=== PATIENT | female | born 1955 | race Caucasian/White ===

== ENCOUNTER 2020-04-24 11:05 | Outpatient (CLI) | payer MEDICARE, SELFPAY ==
[2020-04-24 11:42] LABS: Basophils Percent Auto 0.4 % (0.2-1.2); Eosinophils Absolute Auto 0.1 K/mm3 (0-0.3); Eosinophils Percent Auto 2.2 % (0-4.4); Hematocrit 43.2 % (37.0-47.0); Hemoglobin 14.4 g/dL (12.0-15.0); Immature Granulocyte Absolute 0.01 K/mm3 (0.00-0.031); Immature Granulocyte Percent A 0.2 % (0-0.5); Lymphocytes Absolute Auto 2.06 K/mm3 (0.9-3.2); Lymphocytes Percent Auto 41.4 % (18.3-44.2); Mean Corpuscular HGB Conc 33.3 g/dl (32-36); Mean Corpuscular Hemoglobin 29.7 pg (26-34); Mean Corpuscular Volume 89.1 fl (80-100); Mean Platelet Volume 9.9 fl (7.4-10.4); Monocytes Absolute Auto 0.4 K/mm3 (0.1-0.6); Monocytes Percent Auto 7.2 % (2.6-8.5); Neutrophils Absolute Auto 2.4 K/mm3 (1.3-6.7); Neutrophils Percent Auto 48.6 % (45.5-73.1); Platelet Count Result 220 k/mm3 (150-375); Red Blood Count 4.85 M/mm3 (4.2-5.4); Red Cell Distribution Width 11.9 % (11.5-14.5)
[2020-04-24 11:54] LABS: Alanine Aminotransferase 30 U/L (4-35); Albumin Level 4.8 g/dL (3.5-5.1); Alkaline Phosphatase 50 U/L (38-126); Anion Gap 8 mmol/L (8-16); Aspartate Amino Transferase 32 U/L (14-36); Bilirubin,Total 0.4 mg/dL (0.2-1.3); Blood Urea Nitrogen 15 mg/dL (7-17); Calcium 9.5 mg/dL (8.4-10.2); Carbon Dioxide 29 mmol/L (22-30); Chloride 101 mmol/L (98-107); Cholesterol 193 mg/dL (0-200); Estimated Glomerular Filt Rate > 60; Glucose 105 mg/dL (65-105); HDL Direct 54 mg/dL; Potassium 4.2 mmol/L (3.4-5.0); Sodium 138 mmol/L (137-145); Triglycerides 178 mg/dL (<150)
[2020-04-24 12:05] LABS: LDL Cholesterol Direct 92 mg/dL
== END 2020-04-24 11:06 | disposition home or self-care (01) ==
LOC: ANHLAB 11:09
PROVIDERS: PCP Internal Medicine; Visit Provider Nurse Practitioner
DX: E55.9 Vitamin D deficiency, unspecified (principal); E78.5 Hyperlipidemia, unspecified; Z13.228 Encounter for screening for other metabolic disorders
CPT/HCPCS: 36415; 80053; 80061; 82306; 85025

== ENCOUNTER 2020-06-11 15:31 | Outpatient (CLI) | payer MEDICARE, SELFPAY ==
[2020-06-11 18:09] LABS: Vitamin D 25 Hydroxy 29.6 ng/mL
== END 2020-06-11 15:32 | disposition home or self-care (01) ==
LOC: ANHLAB 15:31
PROVIDERS: PCP Internal Medicine; Visit Provider Obstetrics & Gynecology
DX: M85.89 Other specified disorders of bone density and structure, multiple sites (principal)
CPT/HCPCS: 36415; 82306

== ENCOUNTER 2020-09-24 10:58 | Outpatient (CLI) | payer MEDICARE, SELFPAY ==
--- NOTE | ~2020-09-24 | XR_ITS ---
XR ankle RT 2V DATE: 09/24/2020 11:22 INDICATION: Right ankle and foot pain TECHNIQUE: 2 views COMPARISON: None FINDINGS: Mild plantar calcaneal enthesopathy. No fracture or dislocation of the ankle or disruption of the ankle mortise. No periosteal reaction or bone destruction. IMPRESSION: Mild plantar calcaneal enthesopathy Reviewed, dictated and finalized at location A.
== END 2020-09-24 10:59 | disposition home or self-care (01) ==
PROVIDERS: PCP Internal Medicine; Visit Provider Nurse Practitioner
DX: M77.31 Calcaneal spur, right foot (principal)
CPT/HCPCS: 73600

== ENCOUNTER 2020-11-06 08:01 | Outpatient (CLI) | payer MEDICARE, SELFPAY ==
--- NOTE | ~2020-11-06 | DEXA_ITS ---
Bone Density Report Name: Brook Lucas Age: 65 Sex: Female Ethnicity: White Date of : 1955 Indication: osteopenia; monitoring treatment; prior fracture; postmenopausal Referring Provider: LUIS DREW Study: Bone densitometry was performed. Exam Date: November 06, 2020 Accession number: [id number] Bone Density: Region BMD T-score Z-score Classification AP Spine (L1-L4) 0.896 -1.4 0.5 Osteopenia Femoral Neck (Left) 0.744 -0.9 0.7 Normal Total Hip (Left) 0.935 -0.1 1.3 Normal Total Hip Bilateral Avg 0.950 0.1 1.4 Normal Femoral Neck (Right) 0.833 -0.1 1.5 Normal Total Hip (Right) 0.964 0.2 1.5 Normal World Health Organization criteria for BMD impression classify patients as: Normal (T-score at or above -1.0), Osteopenia (T-score between -1.0 and -2.5), or Osteoporosis (T-score at or below -2.5). 10-year Fracture Risk: FRAX not reported because: Treated for osteoporosis Previous Exams: Region Exam Age BMD T-score BMD Change BMD Change Date g/cm2 vs Baseline vs Previous AP Spine(L1-L4) 11/06/2020 65 0.896 -1.4 -0.051(-5.4%)# 0.010(1.1%) 11/05/2017 62 0.886 -1.5 -0.061(-6.5%)# 0.037(4.4%)# 09/27/2008 53 0.849 -1.8 -0.098(-10.4%) -0.098(-10.4%) 10/31/2003 48 0.947 -0.9 Total Hip(Left) 11/06/2020 65 0.935 -0.1 0.012(1.3%)# 0.021(2.3%) 11/05/2017 62 0.914 -0.2 -0.009(-0.9%)# -0.024(-2.5%)# 09/27/2008 53 0.938 0.0 0.015(1.6%) 0.015(1.6%) 10/31/2003 48 0.923 -0.2 Total Hip(Right) 11/06/2020 65 0.964 0.2 0.030(3.2%)# -0.009(-0.9%) 11/05/2017 62 0.973 0.3 0.039(4.2%)# 0.048(5.2%)# 09/27/2008 53 0.925 -0.1 -0.009(-0.9%) -0.009(-0.9%) 10/31/2003 48 0.934 -0.1 *Denotes significance at 95% confidence level, LSC for AP Spine = 0.022 g/cm2, LSC for Total Hip = 0.027 g/cm2 Clinical Information Provided by Patient: Has had a low trauma fracture Is being treated for osteoporosis Has used the following medications: Fosamax (i.e. alendronate) Patient maximum height was 69 Menopause Age: 41 No regular weight bearing exercise Does not regularly consume dairy products Drinks caffeinated beverages Onset of menses at age 12 Number of children 1 Impression: The patient has low bone mass, based on the Total Spine T-score. The patient has risk factors, including: previous fracture. No significant bone loss was observed. Discussion: PATIENT UNDER TREATMENT WITH NO SI
--- NOTE | ~2020-11-06 | MM_ITS ---
EXAMINATION: MM screening bronson BI w billy HISTORY: Screening mammogram, family history of breast cancer in her mother. TECHNIQUE: Craniocaudal and mediolateral oblique 3-D tomosynthesis images were obtained and synthetic 2-D images were generated. CAD analysis was submitted and interpreted. COMPARISON: 11/12/2017, 11/05/2017, 09/09/1715, 09/09/2015 BREAST PARENCHYMAL COMPOSITION: There are scattered areas of fibroglandular density. FINDINGS: RIGHT BREAST: There is a possible mass middle third of the upper breast best appreciated 5 cm from th e nipple on the mediolateral oblique view. LEFT BREAST: There is no evidence of suspicious mass, calcification, or architectural distortion to s uggest malignancy. There has been no significant interval change. IMPRESSION: 1. Possible right breast mass. 2. Additional mammographic views and possible breast ultrasound are recommended. BI-RADS Category 0: Incomplete: Needs additional imaging evaluation. Reviewed, dictated and finalized at location A. IMPRESSION: 1. Possible right breast mass. 2. Additional mammographic views and possible breast ultrasound are recommended . BI-RADS Category 0: Incomplete: Needs additional imaging evaluation.
== END 2020-11-06 08:02 | disposition home or self-care (01) ==
LOC: ANHIMG 08:03
PROVIDERS: PCP Internal Medicine; Visit Provider Obstetrics & Gynecology
DX: Z12.31 Encounter for screening mammogram for malignant neoplasm of breast (principal); Z78.0 Asymptomatic menopausal state; M85.88 Other specified disorders of bone density and structure, other site; R92.8 Other abnormal and inconclusive findings on diagnostic imaging of breast
CPT/HCPCS: 77063; 77067; 77080

== ENCOUNTER 2021-02-06 14:23 | Outpatient (CLI) | payer MEDICARE, SELFPAY ==
--- NOTE | ~2021-02-06 | MMUS_ITS ---
EXAMINATION: MM diagnostic bronson RT w billy, US breast RT limited HISTORY: Right breast mass on screening TECHNIQUE: Additional 3-D tomosynthesis images of the right breast were performed and synthetic 2-D i mages were generated. CAD analysis was submitted and interpreted. High resolution limited right breas t ultrasound was performed. COMPARISON: 11/06/2020, 11/12/2017, 11/05/2017 BREAST PARENCHYMAL COMPOSITION: There are scattered areas of fibroglandular density. FINDINGS: MAMMOGRAPHIC FINDINGS: There is a 7 mm irregular high density mass with spiculated margins at the 12:00 location in the midd le third of the right breast 6 cm from the nipple with surrounding architectural distortion. ULTRASOUND: There is a 7 mm x 5 mm irregular mass with indistinct and angular margins at the 12:00 location 4 cm from the nipple. The mass demonstrates posterior acoustic shadowing and internal vascularity. IMPRESSION: 1. Suspicious right breast mass. 2. Ultrasound-guided biopsy is recommended. BI-RADS category 5, highly suggestive of malignancy. Reviewed, dictated and finalized at location A. RATORY DIRECTOR IMPRESSION: 1. Suspicious right breast mass. 2. Ultrasound-guided biopsy is recommended. BI-RADS category 5, highly suggestive of malignancy.
== END 2021-02-06 14:24 | disposition home or self-care (01) ==
PROVIDERS: PCP Internal Medicine; Visit Provider Obstetrics & Gynecology
DX: N63.10 Unspecified lump in the right breast, unspecified quadrant (principal); R92.8 Other abnormal and inconclusive findings on diagnostic imaging of breast
CPT/HCPCS: 76642; 77061; 77065; G0279

== ENCOUNTER 2021-12-26 09:34 | Outpatient (CLI) | payer MEDICARE, SELFPAY ==
[2021-12-26 19:45] LABS: Basophils Percent Auto 0.5 % (0.2-1.2); Eosinophils Absolute Auto 0.1 K/mm3 (0-0.3); Eosinophils Percent Auto 1.7 % (0-4.4); Hematocrit 42.5 % (37.0-47.0); Immature Granulocyte Absolute 0.02 K/mm3 (0.00-0.031); Immature Granulocyte Percent A 0.3 % (0-0.5); Lymphocytes Absolute Auto 1.63 K/mm3 (0.9-3.2); Lymphocytes Percent Auto 27.3 % (18.3-44.2); Mean Corpuscular HGB Conc 32.9 g/dl (32-36); Mean Corpuscular Hemoglobin 30.8 pg (26-34); Mean Corpuscular Volume 93.6 fl (80-100); Mean Platelet Volume 10.5 fl (7.4-10.4); Monocytes Absolute Auto 0.5 K/mm3 (0.1-0.6); Monocytes Percent Auto 7.9 % (2.6-8.5); Neutrophils Absolute Auto 3.7 K/mm3 (1.3-6.7); Neutrophils Percent Auto 62.3 % (45.5-73.1); Platelet Count Result 171 k/mm3 (150-375); Red Blood Count 4.54 M/mm3 (4.2-5.4); Red Cell Distribution Width 11.9 % (11.5-14.5)
[2021-12-26 19:52] LABS: Alanine Aminotransferase 22 U/L (6-35); Albumin Level 4.4 g/dL (3.5-5.1); Alkaline Phosphatase 49 U/L (38-126); Anion Gap 11 mmol/L (8-16); Aspartate Amino Transferase 30 U/L (14-36); Bilirubin,Total 0.6 mg/dL (0.2-1.3); Blood Urea Nitrogen 19 mg/dL (7-17); Carbon Dioxide 29 mmol/L (22-30); Chloride 99 mmol/L (98-107); Estimated Glomerular Filt Rate > 60; Glucose 112 mg/dL (65-110); Potassium 4.1 mmol/L (3.4-5.0); Sodium 139 mmol/L (137-145)
[2021-12-26 20:01] LABS: Vitamin D 25 Hydroxy 46.5 ng/mL
[2021-12-29 09:15] LABS: Cholesterol 177 mg/dL (0-200); HDL Direct 53 mg/dL; Triglycerides 165 mg/dL (<150)
[2021-12-29 09:26] LABS: LDL Cholesterol Direct 85 mg/dL
[2021-12-29 12:04] LABS: Hemoglobin A1C 5.9 % (<5.7)
== END 2021-12-26 09:35 | disposition home or self-care (01) ==
PROVIDERS: PCP Internal Medicine; Visit Provider Clinical Nurse Specialist
DX: E78.5 Hyperlipidemia, unspecified (principal); E55.9 Vitamin D deficiency, unspecified; Z13.228 Encounter for screening for other metabolic disorders; Z13.220 Encounter for screening for lipoid disorders; Z51.81 Encounter for therapeutic drug level monitoring; Z79.899 Other long term (current) drug therapy
CPT/HCPCS: 36415; 80053; 80061; 82306; 83036; 85025

== ENCOUNTER 2022-01-13 17:08 | Outpatient (CLI) | payer MEDICARE, SELFPAY ==
--- NOTE | ~2022-01-13 | DEXA_ITS ---
Bone Density Report Name: KIANNA HAM Age: 66 Sex: Female Ethnicity: White Date of : 1955 Indication: osteopenia; monitoring treatment; cancer;postmenopausal Referring Provider: SANTOSH MCCLAIN Study: Bone densitometry was performed. Exam Date: January 13, 2022 Accession number: [id number] Bone Density: Region BMD T-score Z-score Classification AP Spine(L1-L4) 0.895 -1.4 0.6 Osteopenia Femoral Neck (Left) 0.756 -0.8 0.8 Normal Total Hip (Left) 0.933 -0.1 1.3 Normal Femoral Neck (Right) 0.811 -0.3 1.3 Normal Total Hip (Right) 0.983 0.3 1.7 Normal Total Hip Mean 0.958 0.1 1.5 Normal World Health Organization criteria for BMD impression classify patients as: Normal (T-score at or above -1.0), Osteopenia (T-score between -1.0 and -2.5), or Osteoporosis (T-score at or below -2.5). 10-year Fracture Risk: FRAX not reported because: Treated for osteoporosis Previous Exams: Region Exam Age BMD T-score BMD Change BMD Change Date g/cm2 vs Baseline vs Previous AP Spine (L1-L4) 01/13/2022 66 0.895 -1.4 0.009 (1.0%) -0.001 (-0.1%) 11/06/2020 65 0.896 -1.4 0.010 (1.1%) 0.010 (1.1%) 11/05/2017 62 0.886 -1.5 Total Hip(Left) 01/13/2022 66 0.933 -0.1 0.019 (2.0%) -0.002 (-0.2%) 11/06/2020 65 0.935 -0.1 0.021 (2.3%) 0.021 (2.3%) 11/05/2017 62 0.914 -0.2 Total Hip(Right) 01/13/2022 66 0.983 0.3 0.010 (1.0%) 0.019 (1.9%) 11/06/2020 65 0.964 0.2 -0.009 (-0.9%) -0.009 (-0.9%) 11/05/2017 62 0.973 0.3 *Denotes significance at 95% confidence level, LSC for AP Spine = 0.022 g/cm2, LSC for Total Hip = 0.027 g/cm2 Clinical Information Provided by Patient: Is being treated for osteoporosis Has used the following medications: Fosamax (i.e. alendronate), Vitamin D, Calcium Has the following medical conditions: Cancer Patient maximum height was 69 Menopause Age: 41 Drinks caffeinated beverages Onset of menses at age 12 Number of children 1 Impression: The patient has low bone mass, based on the Total Spine T-score. No significant bone loss was observed. Discussion: PATIENT UNDER TREATMENT WITH NO SIGNIFICANT BMD LOSS SINCE LAST EXAM. In an untreated patient, BMD typically declines with age. A lack of decline or gain is usually a sign that treatment is efficacious and fracture risk is reduced. It is important to ask patients whether they are taking their medications and to en
== END 2022-01-13 17:09 | disposition home or self-care (01) ==
PROVIDERS: PCP Internal Medicine; Visit Provider Clinical Nurse Specialist
DX: Z78.0 Asymptomatic menopausal state (principal); M85.88 Other specified disorders of bone density and structure, other site
CPT/HCPCS: 77080

== ENCOUNTER → 2022-07-02 10:01 | Outpatient (CLI) | payer MEDICARE, SELFPAY ==
--- NOTE | ~2022-07-02 | XR_ITS ---
EXAMINATION: XR knee RT min 4V DATE: 07/02/2022 10:14 INDICATION: Right knee pain. Fall. TECHNIQUE: 4 views of right knee were obtained. COMPARISON: None. FINDINGS: Bone alignment is normal. No fracture. There is mild tricompartmental osteoarthritis charac terized by tiny osteophytes. No joint space narrowing. There is a small knee joint effusion. IMPRESSION: 1. Mild right knee osteoarthritis. 2. Small right knee joint effusion. Reviewed, dictated and finalized at location A.
== END ==
PROVIDERS: PCP Internal Medicine; Visit Provider Nurse Practitioner
DX: M17.11 Unilateral primary osteoarthritis, right knee (principal); M25.461 Effusion, right knee
CPT/HCPCS: 73564

== ENCOUNTER 2022-09-24 11:00 | Outpatient (RCR) | payer MEDICARE, SELFPAY ==
--- NOTE | 2022-07-14 10:32 | PTOPEVAL1 ---
Assessment and note entered by Jonny Peraza, PT, DPT Evaluation Information Assessment Status Evaluation Diagnosis R knee pain Onset 1 month Subjective Information Pt states she fell and hit her knee about a month ago, she states she did not have any pain initially after her fall. She states she tried jogging randomly, she does not usually do this and since then her knee has been hurting. She reports pain above the knee. She states she has taken a steroid pack and it only helped for 3-4 days and then the pain came back. Pt likes to paint. Reported Pain Level Pain Score 2: Self Report Assessment PT Clinical Summary Brook presents to therapy today for her initial evaluation with a diagnosis of R knee pain. Today she demonstrates decreased active and passive ROM as well as decreased strength, R compared to L, limited by pain. She demonstrates decreased patellar mobility and increased joint swelling throughout the superior patellar region. Skilled physical therapy services are indicated to improve knee ROM and strength, to manage pain, and to return to baseline function. Plan of Care Interventions Gait Training,Hot Pack/Cold Pack,Manual Therapy, Neuro Re-education,Patient/Caregiver Educati, Therapeutic Activities,Therapeutic Exercise PT Services Indicated Yes Treatment Frequency and 2x/wk for 4 wks Duration These treatments will address the objective and functional deficits as defined above. The patient will be advanced safely and appropriately in order for the patient to progress towards his/her prior level of function. Additional exercises will be introduced and as well as a comprehensive home exercise program upon discharge, if needed, ?to ensure carryover of functional gains achieved in the clinic. This treatment plan has been reviewed and agreement upon by the patient.
--- NOTE | 2022-07-24 15:16 | PCPTNOTE ---
Patient canceled due to being over booked.
--- NOTE | 2022-08-10 12:36 | PTOPPROG ---
Assessment and note entered by Jonny Peraza, PT, DPT Evaluation Information Assessment Status Progress Diagnosis R knee pain Onset 1 month Subjective Information Pt states her knee is doing better. She states she is 80% back to PLOF. She states she is walking normally. She states she continues to get fatigue but this is delayed from 1pm to 3-4 pm. Assessment PT Clinical Summary Brook presents to therapy today for her progress report following 5 visits of therapy to treat her R knee pain. Today she demonstrates improved active knee flexion to 130 deg but is still lacking ~5 deg from terminal knee extension. She has improved her functional mobility but still requires cueing to limit deviations during squatting and other functional movements. Continuation of skilled therapy services are indicated to continue progressing stability, managing pain, and to return to PLOF. Plan of Care Interventions Gait Training,Hot Pack/Cold Pack,Manual Therapy, Neuro Re-education,Patient/Caregiver Educati, Therapeutic Activities,Therapeutic Exercise PT Services Indicated Yes Treatment Frequency and 1x/wk for 4 wks Duration These treatments will address the objective and functional deficits as defined above. The patient will be advanced safely and appropriately in order for the patient to progress towards his/her prior level of function. Additional exercises will be introduced and as well as a comprehensive home exercise program upon discharge, if needed, ?to ensure carryover of functional gains achieved in the clinic. This treatment plan has been reviewed and agreement upon by the patient.
--- NOTE | 2022-09-03 08:44 | PCPTNOTE ---
Addendum entered by Nuvia Agudelo, MEDICAL LAB TECHNOLOGIST 09/03/22 08:44: for date 09/02/22 Original Note: Patient arrived 30 minutes late and had to be rescheduled this date.
--- NOTE | 2022-09-09 10:54 | PTOPPROG ---
Assessment and note entered by Jonny Peraza, PT, DPT Evaluation Information Assessment Status Progress Diagnosis R knee pain Onset 1 month Subjective Information Pt states she was doing really well, but then had a set back when she had to walk quickly after her dog. She states her knee swelled a little bit after this but she feels back to normal now. She states she was able to also walk a couple of laps around her pond. She states she still continues to have some ROM deficits on her R knee and R hip ROM . She states she can get up from the floor better but has to use her L leg to do so. Assessment PT Clinical Summary Brook presents to therapy today for her progress report following 8 visits of therapy to treat her R knee pain. Today she demonstrates improved active knee flexion to 130 deg but is still lacking 3 deg from terminal knee extension active but can get to 0 deg passively. She continues to report decreased function from her baseline d/t an increase in pain and swelling afterwards. Continuation of skilled therapy services are indicated to continue progressing strength and stability, manage pain and swelling, and to return to PLOF. Plan of Care Interventions Gait Training,Hot Pack/Cold Pack,Manual Therapy, Neuro Re-education,Patient/Caregiver Educati, Therapeutic Activities,Therapeutic Exercise PT Services Indicated Yes Treatment Frequency and 1x/wk for 4 wks Duration These treatments will address the objective and functional deficits as defined above. The patient will be advanced safely and appropriately in order for the patient to progress towards his/her prior level of function. Additional exercises will be introduced and as well as a comprehensive home exercise program upon discharge, if needed, ?to ensure carryover of functional gains achieved in the clinic. This treatment plan has been reviewed and agreement upon by the patient.
--- NOTE | 2022-09-28 09:55 | PCPTNOTE ---
Patient did not show up for scheduled appointment this date; called patient, went straight to voicemail reminded her about next appointment which is the re-eval on October 07 @ 9:45am
--- NOTE | 2022-10-06 10:47 | PCPTNOTE ---
This treatment is being continued on visit number [id number]. Please see documentation on both accounts to view progress. Completed interventions, outcomes, and problems have been marked as Inactive to facilitate the copying of the Care plan routine for recurring accounts.
== END 2022-10-05 15:49 | disposition still patient (30) ==
LOC: ANHGOSHPT 11:00
PROVIDERS: PCP Internal Medicine; Visit Provider Nurse Practitioner
DX: M25.561 Pain in right knee (principal)
CPT/HCPCS: 97110; 97112; 97140; 97161; 97530; 99199

== ENCOUNTER 2022-10-12 13:23 | Outpatient (RCR) | payer MEDICARE, SELFPAY ==
--- NOTE | 2022-10-06 10:48 | PCPTNOTE ---
The treatment documented on this account is a continuation of the treatment documented on visit number [id number]. Please see documentation on both accounts to view progress. The Plan of Care has been transitioned and updated within the new V#. I have addressed and agree with the discipline specific Problems, Interventions, and Goals for the current certification period. Completed interventions, outcomes, and problems have been marked as Inactive to facilitate the copying of the Care plan routine for recurring accounts.
--- NOTE | 2022-10-12 11:09 | PTOPDC ---
Assessment and note entered by Jonny Peraza, PT, DPT Evaluation Information Assessment Status Discharge - Pt Not Presen Diagnosis knee pain Subjective Information Pt called to cancel her scheduled appointment this date d/t a scheduling conflict. Called to follow up with patient as this is her re-eval. Pt states she has learned a lot, the exercises are helping, and she does not feel like she needs to continue therapy at this time. Assessment PT Clinical Summary Brook completed 11 visits of skilled therapy between 07/14/22 and 09/28/22. She will be discharged at this time. Plan of Care PT Services Indicated No
== END 2022-10-12 13:25 | disposition home or self-care (01) ==
LOC: ANHGOSHPT 13:23
PROVIDERS: PCP Internal Medicine; Visit Provider Nurse Practitioner
DX: M25.561 Pain in right knee (principal)
CPT/HCPCS: 99199

== ENCOUNTER 2023-06-16 09:03 | Day surgery (SDC) | payer MEDICARE, SELFPAY ==
[2023-05-05 13:58] VITALS: BMI 27.8
[2023-05-31 09:30] VITALS: BMI 27.3
--- NOTE | 2023-06-16 10:23 | PM.HPGS ---
History of Present Illness History of Present Illness Consent: Risks, benefits, and alternatives have been discussed and questions answered. Patient agrees to proceed with procedure. Chief complaint: Neoplasm Screening Narrative: Brook Lucas is a 68 year old female presents for screening colonoscopy. Patient's current weight appetite and bowel movements are normal. Patient denies abdominal pain. She has had no bleeding. Family history. Colonoscopy in 2019 was unremarkable after a recent Cologuard test. Previous colonoscopy 2004 was unremarkable. Review of Systems Review of Systems: Review of systems is noncontributory. [facility] Past Medical History Medical History Breast cancer Radiation treatment Depression H/O x2 Osteopenia Post-menopausal Vitamin D deficiency Family History Family History Sibling Alcohol abuse Daughter Depression ADD (attention deficit disorder) Father Malignant neoplasm of prostate Mother Alcohol abuse Breast cancer Other Family history of arthritis Family history of gout Family history of malignant neoplasm Social History Social History Social History: Caffeine-coffee daily Smoking status: Never smoker Alcohol intake: current Drinks per week: 6 Alcohol use details: Wine Substance use: never Substance use type: does not use Lack of Transportation: No Lack of Food: Never True Current Housing: I Have Housing Concerned About Future Housing: No Difficulty Paying Gas/Electric Bills: No Difficulty Paying for Meds: No Currently Unemployed: No Education: Master's Degree or Higher Difficulty w/ Childcare or Family Care: No Living arrangements: with family Spiritual care concerns: No Meds Home Medications and Allergies Home Medications Medication Instructions Recorded Confirmed Type bupropion HCl 150 mg tablet,12 hr 150 mg PO DAILY 04/13/19 05/31/23 History sustained-release (Wellbutrin SR) risperidone 1 mg tablet (Risperdal) 1 mg PO DAILY 04/13/19 05/31/23 History lorazepam 1 mg tablet (Ativan) 1 mg PO DAILY PRN Anxiety 10/16/21 05/31/23 History trazodone 100 mg tablet 100 mg PO DAILY 10/16/21 05/31/23 History anastrozole 1 mg tablet 1 mg PO DAILY 03/12/23 05/31/23 History venlafaxine 150 mg 150 mg PO DAILY 03/12/23 05/31/23 History capsule,extended release 24 hr alendronate 70 mg tablet 70 mg PO WEEKLY 06/16/23 06/16/23 History atorvastatin 20 mg tablet 20 mg PO DAILY 06/16/23 06/16/23 History Allergies Allergy/AdvReac Type Severity Reaction Status Date / Time No Known Allergies Allergy Verified 06/16/23 10:23 Exam Narrative: Physical exam reveals patient to be alert. Vital signs stable. HEENT exam is unremarkable. Patient is anicteric. Lungs are clear to auscultation and to percussion. Heart is without murmur or extra sounds. Abdomen bowel isn't soft nontender with no organomegaly. Digital external exam normal. Assessment and Plan Assessment and plan (1) Screening for colon cancer: Code(s): Z12.11 - Encounter for screening for malignant neoplasm of colon Status: Acute Assessment and Plan: Patient presents today for neoplasia screening colonoscopy
[2023-06-16 10:25] VITALS: BP 133/80; PULSE 77; RESP 16; TEMP 36.3; O2SAT 100
[2023-06-16] MEDS: LACTATED RINGERS 1,000 ML 150 ML IV CONT (10:27)
--- NOTE | 2023-06-16 10:58 | WPDANESEPPF ---
Anes - Initial Pre Proc Eval Procedure: Operation Date: 06/16/23 11:30 Proposed Procedures p Screening Colonoscopy - Westley Xiong MD Date/Time: 06/16/23 10:58 Surgeon: Westley Xiong MD Pre Op Diagnosis: Neoplasm Screening Patient Data Age: 68 Gender: F Height: 1.75 m Weight: 84.05 kg Last Vital Signs Temp 36.3 C L 06/16/23 10:25 Pulse 77 06/16/23 10:25 Resp 16 06/16/23 10:25 BP 133/80 06/16/23 10:25 Pulse Ox 100 06/16/23 10:25 O2 Del Method Room Air 06/16/23 10:25 Allergies Allergy/AdvReac Type Severity Reaction Status Date / Time No Known Allergies Allergy Verified 06/16/23 10:23 Home Medications Medication Instructions Recorded Confirmed Type bupropion HCl 150 mg tablet,12 hr 150 mg PO DAILY 04/13/19 06/16/23 History sustained-release (Wellbutrin SR) risperidone 1 mg tablet (Risperdal) 1 mg PO DAILY 04/13/19 06/16/23 History lorazepam 1 mg tablet (Ativan) 1 mg PO DAILY PRN Anxiety 10/16/21 06/16/23 History trazodone 100 mg tablet 100 mg PO DAILY 10/16/21 06/16/23 History anastrozole 1 mg tablet 1 mg PO DAILY 03/12/23 06/16/23 History venlafaxine 150 mg 150 mg PO DAILY 03/12/23 06/16/23 History capsule,extended release 24 hr alendronate 70 mg tablet 70 mg PO WEEKLY 06/16/23 06/16/23 History atorvastatin 20 mg tablet 20 mg PO DAILY 06/16/23 06/16/23 History Patient hx anesthesia problems: none Family hx anesthesia problems: none Results Review: All pre-operative results and documents have been reviewed as part of the pre-operative evaluation. [facility] Past Medical History Medical History Breast cancer Radiation treatment Depression H/O x2 Osteopenia Post-menopausal Vitamin D deficiency Family History Family History Sibling Alcohol abuse Daughter Depression ADD (attention deficit disorder) Father Malignant neoplasm of prostate Mother Alcohol abuse Breast cancer Other Family history of arthritis Family history of gout Family history of malignant neoplasm Social History Social History Social History: Caffeine-coffee daily Smoking status: Never smoker Alcohol intake: current Drinks per week: 6 Alcohol use details: Wine Substance use: never Substance use type: does not use Lack of Transportation: No Lack of Food: Never True Current Housing: I Have Housing Concerned About Future Housing: No Difficulty Paying Gas/Electric Bills: No Difficulty Paying for Meds: No Currently Unemployed: No Education: Master's Degree or Higher Difficulty w/ Childcare or Family Care: No Living arrangements: with family Spiritual care concerns: No Anes - Eval Final PreProcedure Day of Procedure 06/16/23 10:58 Patient weight: overweight Heart: regular rate and rhythm Lungs: clear to auscultation Airway: Mallampati scale class II Neurological: alert and oriented Last oral intake: >/= 8 hours ASA classification: III Emergent: no Anesthetic plan: proceed Anesthesia type and monitoring: general GIVS and standard monitoring Results Review: All pre-operative results and documents have been reviewed as part of the pre-operative evaluation. Informed Consent: The patient's anesthetic plan and its attendant risks and benefits were discussed with the patient/family/POA. Questions were solicited and answers provided to the satisfaction of the patient/family/POA.
[2023-06-16 11:38] VITALS: BP 115/62; PULSE 67; RESP 16; O2SAT 96
[2023-06-16 11:48] VITALS: BP 113/72; PULSE 70; RESP 15; O2SAT 99
[2023-06-16 12:08] VITALS: BP 117/61; PULSE 62; RESP 16; O2SAT 99
--- NOTE | 2023-06-16 12:09 | WPDANESPN ---
Anes - Prog Note Post-Op Date/Time: 06/16/23 12:09 Cardiovascular status: normal Respiratory status: normal Airway patency: baseline Mental status: baseline Post-Op hydration status: normal Vital Signs: Last Vital Signs Temp 36.3 C L 06/16/23 10:25 Pulse 70 06/16/23 11:48 Resp 15 06/16/23 11:48 BP 113/72 06/16/23 11:48 Pulse Ox 99 06/16/23 11:48 O2 Del Method Room Air 06/16/23 11:48 Pain Score (VAS): 0 I/O: Intake & Output 06/15/23 06/16/23 06/16/23 23:59 07:59 15:59 Intake Total 400 Balance 400 Patient Feedback: Patient satisfied with anesthetic care.
== END 2023-06-16 12:18 | disposition home or self-care (01) ==
PROVIDERS: PCP Internal Medicine; Visit Provider Internal Medicine Gastroenterology
PROC: 0DJD8ZZ Inspection of Lower Intestinal Tract, Via Natural or Artificial Opening Endoscopic (ICD-10-PCS; CPT 45378; principal; 2023-06-16 11:30)
DX: Z12.11 Encounter for screening for malignant neoplasm of colon (principal); K64.8 Other hemorrhoids
CPT/HCPCS: 45378

== ENCOUNTER 2023-06-21 10:14 | Outpatient (CLI) | payer MEDICARE, SELFPAY ==
[2023-06-21 17:11] LABS: Basophils Percent Auto 0.8 % (0.2-1.2); Eosinophils Absolute Auto 0.1 K/mm3 (0-0.3); Eosinophils Percent Auto 2.1 % (0-4.4); Hematocrit 43.3 % (37.0-47.0); Hemoglobin 14.3 g/dL (12.0-15.0); Immature Granulocyte Absolute 0.01 K/mm3 (0.00-0.031); Immature Granulocyte Percent A 0.2 % (0-0.5); Lymphocytes Absolute Auto 1.65 K/mm3 (0.9-3.2); Lymphocytes Percent Auto 34.6 % (18.3-44.2); Mean Corpuscular Hemoglobin 30.4 pg (26-34); Mean Corpuscular Volume 92.1 fl (80-100); Mean Platelet Volume 10.7 fl (7.4-10.4); Monocytes Absolute Auto 0.4 K/mm3 (0.1-0.6); Monocytes Percent Auto 8.8 % (2.6-8.5); Neutrophils Absolute Auto 2.6 K/mm3 (1.3-6.7); Neutrophils Percent Auto 53.5 % (45.5-73.1); Platelet Count Result 216 k/mm3 (150-375); Red Cell Distribution Width 12.5 % (11.5-14.5); White Blood Count 4.8 K/mm3 (4.5-10.0)
[2023-06-21 17:16] LABS: Alanine Aminotransferase 23 U/L (6-35); Albumin Level 4.5 g/dL (3.5-5.1); Alkaline Phosphatase 59 U/L (38-126); Anion Gap 8 mmol/L (4-12); Aspartate Amino Transferase 39 U/L (14-36); Bilirubin,Total 0.6 mg/dL (0.2-1.3); Blood Urea Nitrogen 17 mg/dL (7-17); Calcium 9.3 mg/dL (8.4-10.2); Carbon Dioxide 27 mmol/L (22-30); Chloride 102 mmol/L (98-107); Cholesterol 179 mg/dL (0-200); Estimated Glomerular Filt Rate > 60; Glucose 110 mg/dL (65-110); HDL Direct 58 mg/dL; Potassium 4.1 mmol/L (3.4-5.0); Sodium 137 mmol/L (137-145); Triglycerides 139 mg/dL (<150)
[2023-06-21 17:28] LABS: LDL Cholesterol Direct 94 mg/dL
[2023-06-21 17:30] LABS: Hemoglobin A1C 5.5 % (<5.7)
[2023-06-21 17:38] LABS: Vitamin D 25 Hydroxy 69.5 ng/mL
== END 2023-06-21 10:15 | disposition home or self-care (01) ==
LOC: ANHGOSHLAB 10:16
PROVIDERS: PCP Internal Medicine; Visit Provider Nurse Practitioner
DX: E78.2 Mixed hyperlipidemia (principal); R73.03 Prediabetes; E55.9 Vitamin D deficiency, unspecified; R73.9 Hyperglycemia, unspecified
CPT/HCPCS: 36415; 80053; 80061; 82306; 83036; 85025

== ENCOUNTER 2023-07-21 14:57 | Outpatient (CLI) | payer MEDICARE, SELFPAY ==
[2023-07-22 15:24] LABS: ANA Cascade Screen NEGATIVE (NEGATIVE)
== END 2023-07-21 14:58 | disposition home or self-care (01) ==
LOC: ANHGOSHLAB 14:59
PROVIDERS: PCP Internal Medicine; Visit Provider Nurse Practitioner
DX: R20.0 Anesthesia of skin (principal); R41.89 Other symptoms and signs involving cognitive functions and awareness; R63.1 Polydipsia
CPT/HCPCS: 36415; 82607; 84443; 86038; 86225; 86235; 86364

== ENCOUNTER 2024-09-11 10:01 | Outpatient (CLI) | payer MEDICARE, SELFPAY ==
[2024-09-11 12:43] LABS: Basophils Percent Auto 0.6 % (0.2-1.2); Eosinophils Absolute Auto 0.1 K/mm3 (0-0.3); Eosinophils Percent Auto 1.9 % (0-4.4); Hematocrit 41.6 % (37.0-47.0); Hemoglobin 13.5 g/dL (12.0-15.0); Immature Granulocyte Absolute 0.02 K/mm3 (0.00-0.031); Immature Granulocyte Percent A 0.4 % (0-0.5); Lymphocytes Absolute Auto 1.77 K/mm3 (0.9-3.2); Lymphocytes Percent Auto 33.8 % (18.3-44.2); Mean Corpuscular HGB Conc 32.5 g/dl (32-36); Mean Corpuscular Hemoglobin 29.6 pg (26-34); Mean Corpuscular Volume 91.2 fl (80-100); Mean Platelet Volume 10.1 fl (7.4-10.4); Monocytes Absolute Auto 0.5 K/mm3 (0.1-0.6); Monocytes Percent Auto 10.1 % (2.6-8.5); Neutrophils Absolute Auto 2.8 K/mm3 (1.3-6.7); Neutrophils Percent Auto 53.2 % (45.5-73.1); Platelet Count Result 217 k/mm3 (150-375); Red Blood Count 4.56 M/mm3 (4.2-5.4); Red Cell Distribution Width 12.5 % (11.5-14.5); White Blood Count 5.2 K/mm3 (4.5-10.0)
[2024-09-11 13:03] LABS: Alanine Aminotransferase 28 U/L (6-35); Albumin Level 4.6 g/dL (3.5-5.1); Alkaline Phosphatase 57 U/L (38-126); Anion Gap 11 mmol/L (4-12); Aspartate Amino Transferase 50 U/L (14-36); Bilirubin,Total 0.5 mg/dL (0.2-1.3); Blood Urea Nitrogen 12 mg/dL (7-17); Calcium 9.4 mg/dL (8.4-10.2); Carbon Dioxide 25 mmol/L (22-30); Chloride 100 mmol/L (98-107); Cholesterol 188 mg/dL (0-200); Estimated Glomerular Filt Rate > 60; Glucose 112 mg/dL (65-110); HDL Direct 62 mg/dL; Potassium 4.5 mmol/L (3.4-5.0); Sodium 136 mmol/L (137-145); Total Protein 7.4 g/dL (6.3-8.2); Triglycerides 135 mg/dL (<150)
[2024-09-11 13:14] LABS: LDL Cholesterol Direct 79 mg/dL; Vitamin D 25 Hydroxy 44.1 ng/mL
[2024-09-11 16:06] LABS: Hemoglobin A1C 5.8 % (<5.7)
== END 2024-09-11 10:02 | disposition home or self-care (01) ==
PROVIDERS: PCP Internal Medicine; Visit Provider Clinical Nurse Specialist
DX: R73.9 Hyperglycemia, unspecified (principal); Z13.228 Encounter for screening for other metabolic disorders; E78.2 Mixed hyperlipidemia; E55.9 Vitamin D deficiency, unspecified; R41.89 Other symptoms and signs involving cognitive functions and awareness
CPT/HCPCS: 36415; 80053; 80061; 82306; 82607; 83036; 84443; 85025

== ENCOUNTER 2024-10-02 09:27 | Outpatient (CLI) | payer MEDICARE, SELFPAY ==
--- NOTE | ~2024-10-02 | US_ITS ---
Limited Abdominal Sonogram: Real-time sonographic imaging of the right upper quadrant was performed. Clinical History: Abnormal serum enzyme levels Findings: The liver appears normal with no evidence of solid mass lesion or bile duct dilatation. Mu ltiple hepatic cysts are present, largest measuring up to 8.1 cm in diameter. Main portal vein demons trates normal direction of flow. The gallbladder is contrast Probable multiple stones. The common bile duct measures 4 mm. The visualized pancreas, aorta, and IV C are unremarkable. Impression: Cholelithiasis. Multiple hepatic cysts, as detailed above. Reviewed, dictated and finalized at location M. Impression: Cholelithiasis. Multiple hepatic cysts, as detailed above.
== END 2024-10-02 09:28 | disposition home or self-care (01) ==
LOC: GOSHIMG 09:27
PROVIDERS: PCP Nurse Practitioner; Visit Provider Nurse Practitioner
DX: K80.20 Calculus of gallbladder without cholecystitis without obstruction (principal); K76.89 Other specified diseases of liver; R74.8 Abnormal levels of other serum enzymes
CPT/HCPCS: 76705

== ENCOUNTER 2024-10-02 09:52 | Outpatient (CLI) | payer MEDICARE, SELFPAY ==
--- OUTSIDE RECORDS SUMMARY | 2024-10-02 09:59 | XMS_ITS | Clinical Summary ---
Author Organization [facility] Address [address] [place] [address] Care Team Providers Care Vice President Of Recruiting Name Role Phone Geraldo Coffey DO Primary Care Provider Anthony Castro MD Unavailable [phone] Source Comments [facility],non-owned Affiliates and Associated Physician Practices is amultiple site organization consisting of ambulatory clinics and hospital sitesin [place], [place], [place] and [place]. This disclosure is being madepursuant to the Care Everywhere program and may not contain all information available regarding this patient. Last updated 17.[facility] Allergies No known active allergies Medications * Be aware that medications may not be up to date on this document. Alwaysverify current medications with the patient. atorvastatin (LIPITOR) 20 MG tablet Take 1 (one) tablet by mouth at bedtime 1 Active buPROPion XL 24hr (WELLBUTRIN-XL) 150 MG tablet Take 1 (one) tablet by mouth once daily 1 Active risperiDONE (RISPERDAL) 1 MG tablet Take 1 (one) tablet by mouth once daily 1 Active LORazepam (ATIVAN) 0.5 MG tablet Take 1 (one) tablet by mouth once daily as needed 1 Active traZODone (DESYREL) 100 MG tablet Take 1 (one) tablet by mouth at bedtime 2 Active venlafaxine XR 24hr (EFFEXOR XR) 75 MG capsule Take 1 (one) capsule by mouth once daily 2 Active Calcium Carbonate-Vitam in D 600-5 MG-MCG Take 2 (two) tablets by mouth 2 times daily 3 Active anastrozole (Arimidex) 1 MG tabletIndicatio ns:Malignant neoplasm of upper-outer quadrant of right breast in female, estrogen receptor positive (HCC),Malignant neoplasm of upper-outer quadrant of right breast in female, estrogen receptor positive (HCC),Malignant neoplasm of upper-outer quadrant of right breast in female, estrogen receptor positive (HCC) Take 1 (one) tablet by mouth once daily 90 tablet 1 5 Active anastrozole (Arimidex) 1 MG tabletIndicatio ns:Malignant neoplasm of upper-outer quadrant of right breast in female, estrogen receptor positive (HCC),Malignant neoplasm of upper-outer quadrant of right breast in female, estrogen receptor positive (HCC),Malignant neoplasm of upper-outer quadrant of right breast in female, estrogen receptor positive (HCC) TAKE 1 TABLET BY MOUTH EVERY DAY 90 tablet 1 4 09/20/19 25 Discontinu ed(Reorder ) alendronate (Fosamax) 70 MG tablet TAKE 1 TABLET BY MOUTH EVERY 7 DAYS BEFORE MEAL REASONS: DECREASED BONE MINERAL DENSITY 12 tablet 1 5 09/20/19 25 Discontinu ed(Tx Complete) Active Problems Problem Noted Date Diagnosed Date Malignant neoplasm of upper- outer quadrant of right breast in female, estrogen receptor positive 02/20/2021 Cancer Staging:Clinical stage from 03/07/2021:Stage IA(cT1, cN0, cM0, G1, ER+, IL+, HER2-) - Signed by Julita Mello MD on 12/30/2021 Pathologic stage from 04/20/2021:Stage IA(pT1b, pN0(sn), cM0, G1, ER+, IL+, HER2- , Oncotype DX score: 8) - Signed by Julita Mello MD on 12/30/2021 Overview (04/27/2022): Breast Cancer Diagnosis/Pathology: Pathology- surgical pathology 04/16/21: infiltrating ductal carcinoma, grade 1/3 (1,1,1), 7 mm size, negative margins Negative sentinel lymph node biopsy x 2 nodes OncotypeDX - Low risk for recurrence, score 8, which predicts a 3% chance of distant recurrence and absolute benefit of chemotherapy of less than 1%. Diagnosis 02/20/21: Ultrasound-guided core biopsy of a 7 mm Right breast mass at 12 o'clock 4 cm from nipple on 02/20/21 by, pathology: Invasive ductal carcinoma, grade 1 ER positive 91-100%, IL positive 91-100%, Her2 Negative score 0, Ki-67 5% Breast Cancer Treatment History: Breast Surgery: Right lumpectomy/partial mastectomy with intraoperative ultrasound guided localization and Right axillary sentinel lymph node biopsy on 04/16/21. Radiation: 06[facility]29[facility]21[facility]07[facility]31[facility], Dr. Charles Patrick, notes scanned into Media section of [facility]mn[facility] chart Systemic Therapy: anastrozole started 11/11/21, Sees Encounters Date Type Department Care Team Description 09/21/2024 Results Follow-Up [address] [place] [address] Zonia Montana MD 09/19/2024 11:20 AM CDT Office Visit [address] [place] [address] Zonia Montana MD Malignant neoplasm of upper-outer quadrant of right breast in female, estrogen receptor positive (HCC) (Primary Dx); Vitamin D deficiency; Malignant neoplasm of upper-outer quadrant of right breast in female, estrogen receptor positive (HCC); IL positive and Her2 negative; Malignant neoplasm of upper-outer quadrant of right breast in female, estrogen receptor positive & Her2 negative 09/19/2024 9:55 AM CDT - 09/19/2024 11:59 PM CDT Hospital Encounter [facility] [address] [place] [address] Geraldo Coffey, DO Discharge Disposition: Home or Self Care 09/19/2024 9:29 AM CDT - 09/19/2024 9:54 AM CDT Hospital Encounter [facility] [address] [place] [address] Geraldo oCffey, DO Discharge Disposition: Home or Self Care 08/04/2024 Travel 07/22/[address] [address] Zonia Montana MD Refill Request from Last 3 Months Family History Medical History Relation Name Comments Cancer - Prostate Father Cancer - Breast Mother Relation Name Status Comments Father Mother Social History Tobacco Use Types Packs/Day Years Used Date Smoking Tobacco: Never Smokeless Tobacco: Never Tobacco Cessation:Counseling Given: Not Answered Alcohol Use Standard Drinks/Week Comments Yes 0 (1 standard drink = 0.6 oz pur e alcohol) ocassionaly AUDIT-C Answer Date Recorded Q1: How often do you have a drink containing alc ohol? Never 04/16/2021 Average Number of Drinks Not on file 022 Frequency of Binge Drinking Not on file 03/23 PHQ-2 Answer Date Recorded Patient Health Questionnaire-2 Score 0 09/19/2024 Comments No Sex and Gender Information Value Date Recorded Sex Assigned at Not on file Legal Sex Female 10:12 AM [facility] Gender Identity Not on file Sexual Orientation Not on file Last Filed Vital Signs Vital Sign Reading Time Taken Comments Blood Pressure 143/79 09/19/2024 11:12 AM CDT Pulse 69 09/19/2024 11:12 AM CDT Temperature 36.5 C (97.7 F) 09/19/2024 11:12 AM CDT Respiratory Rate 18 03/09/2023 10:29 AM HUB [facility] Oxygen Saturation 97% 09/19/2024 11:12 AM CDT Inhaled Oxygen Concentration - - Weight 87.4 kg (192 lb 9.6 oz) 09/19/2024 11:12 AM CDT Height 175.3 cm (5' 9) 09/19/2024 11:12 AM CDT Body Mass Index 28.44 09/19/2024 11:12 AM CDT Plan of Treatment Upcoming Encounters Date Type Department Care Team (Late st Contact Info) Description 03/30/2025 9:00 AM [facility] Documentation [address] [address] 03/30/2025 9:20 AM [facility] Office Visit [place] [id number] [facility] [address] [place] [phone] Zonia Montana MD [address] [facility] [address] [place] [address] Health Maintenance Due Date Last Done Comments COLON MONITORING 1954 COLONOSCOPY - COLON CA SCREENING 1954 CT COLONOGRAPHY - COLON CA SCREENING 1954 FIT - COLON CA SCREENING 1954 FLEX SIG - COLON CA SCREENING 1954 HEPATITIS C SCREENING 04/08/1972 DTAP/TDAP/TD VACCINES (1 - Tdap) 1973 PNEUMOCOCCAL VACCINE 50+ (1 of 1 - PCV) 2004 ZOSTER VACCINE (1 of 2) 2004 COLOGUARD (AGES 45-75) - COLON CA SCREENING 06/07/2022 06/08/2019 Colorectal Cancer Screening 06/07/2022 COVID-19 VACCINE ( season) 2023 10/01/2021, 01/13/2021, 06/25/2020, Additional history exists MEDICARE AWV CALENDAR YEAR 2024 INFLUENZA VACCINE (#1) 2024 , 12/26/2019, 11/29/2017 MAMMOGRAM 09/19/2026 09/19/2024, 02/19, 02/02/2022, Additional history exists SCREENING FOR DIABETES 09/20/2027 , 01/03/2024, 07/01/2023, Additional history exists Respiratory Syncytial Virus (RSV) Vaccine Pt: or over 60 yrs (1 - 1-dose 75+ series) 2029 BONE DENSITY TESTING Completed 09/19/2024 DEPRESSION SCREENING Completed 09/19/2024, 07/01/2023, 06/11/2022, Additional history exists HEPATITIS B VACCINE Aged Out No longe r eligible based on patient's age to complete this topic HIB VACCINE Aged Out No longer eligi ble based on patient's age to complete this topic HPV VACCINE Aged Out No longer eligi ble based on patient's age to complete this topic MENINGOCOCCAL (Group B) VACCINE SHARED DECISION-MAKING Aged Out No longer eligible based on patient's age to complete this topic MENINGOCOCCAL GROUPS A/C/Y/W VACCINE Aged Out No longer eligible based on patient's age to complete this topic Procedures Procedure Name Priority Date/Time Associated Diagnosis Comments CBC W AUTO DIFFERENTIAL (CANCER CARE) Routine 09/19/2024 10:35 AM CDT Malignant neoplasm of upper-outer quadrant of right breast in female, estrogen receptor positive (HCC) COMPREHENSIVE METABOLIC PANEL Routine 09/19/2024 10:35 AM CDT Malignant neoplasm of upper-outer quadrant of right breast in female, estrogen receptor positive (HCC) VITAMIN D 25-HYDROXY Routine 09/19/2024 10:35 AM CDT Malignant neoplasm of upper-outer quadrant of right breast in female, estrogen receptor positive (HCC) Vitamin D deficiency DEXA BONE DENSITY AXIAL SKELETON Routine 09/19/2024 10:08 AM CDT Malignant neoplasm of upper-outer quadrant of right breast in female, estrogen receptor positive (HCC), IL positive & Her 2 negative Vitamin D deficiency Osteopenia, unspecified location MAMMO BILAT SCREENING W THOR Routine 09/19/2024 9:46 AM CDT Visit for screening mammogram from Last 3 Months Results * (ABNORMAL) CBC W AUTO DIFFERENTIAL (CANCER CARE) (09/19/2024 10:35 AM CDT) WBC 5.3 4.4 - 10.7 x10E9/L 09/19/2024 10:43 AM CDT [facility] Neutrophils % 57.9 44.0 - 73.0 % 09/19/2024 10:43 AM CDT [facility] Lymphocytes % 33.0 20.0 - 43.0 % 09/19/2024 10:43 AM CDT [facility] Monocytes % 7.2 5.0 - 13.0 % 09/19/2024 10:43 AM CDT [facility] Eosinophils % 1.5 0.0 - 6.0 % 09/19/2024 10:43 AM CDT [facility] Basophils % 0.4 0.0 - 2.0 % 09/19/2024 10:43 AM CDT [facility] Neutrophil Absolute 3.07 2.01 - 7.14 x10E9/L 09/19/2024 10:43 AM CDT [facility] Lymphocytes Absolute 1.75 1.07 - 3.94 x10E9/L 09/19/2024 10:43 AM CDT [facility] Monocytes Absolute 0.38 0.26 - 1.07 x10E9/L 09/19/2024 10:43 AM CDT [facility] Eosinophils Absolute 0.08 0 - 0.47 x10E9/L 09/19/2024 10:43 AM CDT [facility] Basophils Absolute 0.02 0 - 0.08 x10E9/L 09/19/2024 10:43 AM CDT [facility] RBC 4.42 3.80 - 5.20 x10E12/L 09/19/2024 10:43 AM CDT [facility] Hemoglobin 13.5 12.0 - 15.6 gm/dL 09/19/2024 10:43 AM CDT [facility] Hematocrit 40.9 35.9 - 45.5 % 09/19/2024 10:43 AM CDT [facility] MCV 92.5 80.7 - 98.3 fl 09/19/2024 10:43 AM CDT [facility] MCH 30.5 26.7 - 34.0 pg 09/19/2024 10:43 AM CDT [facility] MCHC 33.0 30.8 - 35.9 gm/dL 09/19/2024 10:43 AM CDT [facility] RDW-CV 12.5 12.1 - 14.9 % 09/19/2024 10:43 AM CDT [facility] Platelet Count 195 153 - 416 x10E9/L 09/19/2024 10:43 AM CDT [facility] MPV 9.2(L) 9.4 - 12.9 fl 09/19/2024 10:43 AM CDT [facility] Blood BLOOD SPECIMEN / Unknown 09/19/2024 10:35 AM CDT 09/19/2024 10:35 AM CDT Zonia Montana MD LAB - HEMATOLOGY ORDERABLES Fi nal Result [facility] [address] [facility] [address] [place] [address] * VITAMIN D 25-HYDROXY (09/19/2024 10:35 AM CDT) Vitamin D, 25 Hydroxy 55.8 30 - 80 ng/mL [facility] ACCOUNT BILL Comment: Vitamin D Status: Deficiency <20 ng/mL Insufficiency 20-30 ng/mL Sufficiency 30-100 ng/mL Toxicity >100 ng/mL Blood BLOOD SPECIMEN / Unknown 09/19/2024 10:35 AM CDT 09/19/2024 Comment:Blood Release to [facility] Narrative [facility] ACCOUNT BILL - 09/19/2024 8:35 PM CDT Performed at: [address] [place] [address] [place] [id number] [employer]amp Press Operator: Jordan Harrison Dr, Phone: [phone] Zonia Montana MD LAB - CHEMISTRY ORDERABLES Fin al Result Performing Organization Address City/[facility]/ZIP Co de Phone Number [facility] ACCOUNT BILL [address] [place] [address] * (ABNORMAL) COMPREHENSIVE METABOLIC PANEL (09/19/2024 10:35 AM CDT) Glucose 108(H) 70 - 99 mg/dL [facility] ACCOUNT BILL BUN 19 7 - 26 mg/dL [facility] ACCOUNT BILL Creatinine 0.82 0.57 - 1.11 mg/dL [facility] ACCOUNT BILL eGFR by CKD-EPI 77(L) >=90 mL/min/1.7 3 m2 [facility] ACCOUNT BILL Sodium 138 136 - 145 mmol/L [facility] ACCOUNT BILL Potassium 4.5 3.5 - 5.1 mmol/L [facility] ACCOUNT BILL Chloride 103 98 - 107 mmol/L [facility] ACCOUNT BILL CO2 29 22 - 29 mmol/L [facility] ACCOUNT BILL Calcium 9.2 8.4 - 10.4 mg/dL [facility] ACCOUNT BILL Protein Total 6.7 6.4 - 8.3 gm/dL [facility] ACCOUNT BILL Albumin 4.5 3.1 - 4.5 gm/dL [facility] ACCOUNT BILL Bilirubin Total 0.4 0.2 - 1.2 mg/dL [facility] ACCOUNT BILL Alkaline Phosphatase 57 40 - 150 U/L [facility] ACCOUNT BILL AST 22 10 - 48 U/L [facility] ACCOUNT BILL ALT 22 6 - 57 U/L [facility] ACCOUNT BILL Blood BLOOD SPECIMEN / Unknown 09/19/2024 10:35 AM CDT 09/19/2024 Comment:Blood Release to lis anne Erin [facility] ACCOUNT BILL - 09/19/2024 8:35 PM CDT Performed at: [address] [place] [id number] [employer] Operator: Jordan Harrison Dr, Phone: [phone] Zonia Montana MD LAB - CHEMISTRY ORDERABLES Fin al Result [facility] ACCOUNT BILL [address] [place] [address] * DEXA BONE DENSITY AXIAL SKELETON (09/19/2024 10:08 AM CDT) Anatomical Region Laterality Modality Nuclear Medicine 09/19/2024 11:0 8 AM CDT Impressions 09/19/2024 11:10 AM CDT IMPRESSION: WHO category: Normal WORLD HEALTH ORGANIZATION DEFINITIONS NORMAL= T-Score at or above -1.0 SD OSTEOPENIA = T-Score between -1 and -2.5 SD OSTEOPOROSIS = T-Score at or below -2.5 SD > Interpreting Provider: Momo Egan DO on 09/19/2024 11:10 AM Narrative 09/19/2024 11:10 AM CDT PROCEDURE: DEXA BONE DENSITY AXIAL SKELETON DATE/TIME OF EXAM: 09/19/2024 10:08 AM CLINICAL INFORMATION: None relevant/not provided if blank. Indication: C50.411: Malignant neoplasm of upper-outer quadrant of right breast in female, estrogen receptor positive (HCC) Z17.0: Malignant neoplasm of upper-outer quadrant of right breast in female, estrogen receptor positive (HCC) E55.9: Vitamin D deficiency M85.80: Osteopenia, unspecified location COMPARISON: None. INDICATION: 69 years-old for osteoporosis screening. FINDINGS: The mean bone mineral content of the lumbar spine is 1.095 g/cm2 and T-score is -0.7. The mean bone mineral content of the left femoral neck is 0.950 g/cm2 and T-score is -0.6. The mean bone mineral content of the left total hip is 1.020 g/cm2 and T-score is 0.1. The mean bone mineral content of the right femoral neck is 0.984 g/cm2 and T-score is -0.4. The mean bone mineral content of the right total hip is 1.006 g/cm2 and T-score is 0.0. FRAX 10 year fracture risk Major osteoporotic fracture: 8.0% Hip fracture: 0.7% Procedure Note Momo Egan DO - 09/19/2024 PROCEDURE: DEXA BONE DENSITY AXIAL SKELETON DATE/TIME OF EXAM: 09/19/2024 10:08 AM CLINICAL INFORMATION: None relevant/not provided if blank. Indication: C50.411: Malignant neoplasm of upper-outer quadrant of right breast in female, estrogen receptor positive (HCC) Z17.0: Malignant neoplasm of upper-outer quadrant of right breast in female, estrogen receptor positive (HCC) E55.9: Vitamin D deficiency M85.80: Osteopenia, unspecified location COMPARISON: None. INDICATION: 69 years-old for osteoporosis screening. FINDINGS: The mean bone mineral content of the lumbar spine is 1.095 g/cm2 and T-score is -0.7. The mean bone mineral content of the left femoral neck is 0.950 g/cm2and T-score is -0.6. The mean bone mineral content of the left total hip is 1.020 g/cm2 and T-score is 0.1. The mean bone mineral content of the right femoral neck is 0.984 g/cm2and T-score is -0.4. The mean bone mineral content of the right total hip is 1.006 g/cm2 and T-score is 0.0. FRAX 10 year fracture risk Major osteoporotic fracture: 8.0% Hip fracture: 0.7% IMPRESSION: WHO category: Normal WORLD HEALTH ORGANIZATION DEFINITIONS NORMAL= T-Score at or above -1.0 SD OSTEOPENIA = T-Score between -1 and -2.5 SD OSTEOPOROSIS = T-Score at or below -2.5 SD > Interpreting Provider: Momo Egan DO on 09/19/2024 11:10 AM Zonia Montana MD DEXA ORDERABLES Final Result * Mammo Bilat Screening W Thor (09/19/2024 9:46 AM CDT) Anatomical Region Laterality Modality Breast Bilateral Mammography 09/19/2024 10:5 1 AM CDT Impressions 09/19/2024 10:58 AM CDT IMPRESSION: No mammographic evidence of malignancy in either breast. ASSESSMENT: BIRADS Category 2: Benign finding(s). RECOMMENDATION: Bilateral screening mammogram in one year. Thank you for allowing us to participate in the care of your patient. [facility] utilizes [employer] as a reminder system to notify patients of their next recommended mammogram. > Interpreting Provider: Phyllis Bennett MD on 09/19/2024 10:58 AM Narrative 09/19/2024 10:58 AM CDT EXAMINATION: Digital screening mammogram. Low-dose full-field digital breast tomosynthesis examination was performed with synthetic 2D images. Computer assisted detection was utilized. DATE: 09/19/2024 9:46 AM PRIOR: 03/09/2023 and prior mammograms dating back to 2020. BREAST PARENCHYMAL DENSITY: There are scattered areas of fibroglandular density. FINDINGS: No suspicious masses, areas of architectural distortion or microcalcifications are evident on synthetic 2D mammogram or tomosynthesis images. There has been no significant interval change since the prior examination. Right breast posttreatment changes. Geraldo Coffey DO MAMMO ORDERABLES Final Resu lt from Last 3 Months Insurance [facility] MANAGED MEDICARE ADV DR ANDRE [address] MANAGED MEDICARE [facility]V [facility] [place] [address] Care Teams Vice President Of Recruiting Relationship Specialty Start Date End Date Geraldo Coffey DO PCP - General Internal Medicine 05/21/21 Anthony Castro MD [address] [facility] [address] [place] [address] [employer] Workers Obstetrics and Gynecology 05/21/21
--- OUTSIDE RECORDS SUMMARY | 2024-10-02 09:59 | XMS_ITS | Patient Health Record ---
Author Organization Counts include 234 beds at the [facility] Address [address] [place] [address] Care Team Providers Care Supervisor Baking Name Role Phone Justin Kasper Primary Care Provider [phone] Habib, Arif Unavailable [phone] Allergies No Known Allergies Reason For Referral No Information Medications Medication SIG (Take, Route, Frequency, Duration) Notes Start Date End Date Status Effexor XR 37.5 MG 1 capsule with food Orally Once a day; Duration: 30 day(s) 09/02/2021 Not-Taking Atorvastatin Calcium Active traZODone HCl 100 MG 1 tablet at bedtime as needed Orally Once a day; Duration: 30 days Active Alendronate Sodium A ctive risperiDONE 1 MG 1 tablet Orally Once a day; Duration: 30 days F4. Active Anastrozole 1 MG 1 tablet Orally Once a day Active Ativan 0.5 MG 1 tablet as needed Orally Once a day; Duration: 30 days F41.9 08/08/2024 Active Venlafaxine HCl ER 150 MG 1 capsule with food Orally Once a day; Duration: 30 days F4. Active Wellbutrin XL 150 MG 1 tablet in the mor jake Orally Once a day; Duration: 30 days F4. Active Social History Tobacco Use: Social History Observation Description Date Details (start date - stop date) Never Smoker NA - NA Sex Assigned At : Social History Observation Description Sex Assigned At Female Dont use, Tobacco Use/Smoking Question Answer Notes Are you a nonsmoker Tobacco Control (Standard) Question Answer Notes Tobacco use: Nonsmoker Problems Problem Type SNOMED Code ICD Code Onset Dates Problem Status W/U Status Risk Notes Problem Bipolar 1 disorder (796874605) Bipolar 1 disorder (F31.9) Active confirmed Encounters Encounter Location Date Provider Diagnosis [address] [address] 03/31/2024 Arif Habib [address] [address] 01/04/2024 Arif Habib Bipolar 1 disorder F31.[address] [address] 05/02/2024 Arif Habib Bipolar 1 disorder F31.[address] [address] 08/08/2024 Arif Habib Bipolar 1 disorder F31.[address] [address] 01/04/2024 Justin Kasper [address] [address] 03/31/2024 Arif Habib Bipolar 1 disorder F31.[address] [address] 03/31/2024 Justin Kasper [address] [address] 04/28/2024 Arif Habib Bipolar 1 disorder F31.[address] [address] 08/04/2024 Arif Habib Bipolar 1 disorder F31.[address] [address] 08/08/2024 Justin Kasper Assessments Encounter Date Diagnosis (ICD Code) Assessment Notes Treatment Notes Treatment Clinical Notes Section Notes 01/04/2024 Bipolar 1 disorder (ICD-10 - F31.9) risk & benefits discussed. Continue current treatment. Restart Risperdal 1 mg a da y dose. No involuntary movements reported. 03/31/2024 Bipolar 1 disorder (ICD-10 - F31.9) 04/28/2024 Bipolar 1 disorder (ICD-10 - F31.9) 05/02/2024 Bipolar 1 disorder (ICD-10 - F31.9) risk & benefits discussed. Continue current treatment. No involuntary movements reported. 08/08/2024 Bipolar 1 disorder (ICD-10 - F31.9) risk & benefits discussed. Continue current treatment. No involuntary movements reported. 08/04/2024 Bipolar 1 disorder (ICD-10 - F31.9) Plan Of Treatment No Information Insurance Providers Payer Name Payer Address Payer Phone Subscriber Number Group Number Insured Name Patient Relationship to Insured Coverage Start Date Coverage End Date [facility] Medicare [address] [address] [place] [address] [phone] [id number] Brook Lucas Self - patient is the insured 3 MEDICAID [address] [place] [address] [id number] Brook Lucas Self - patient is the insured 0 5 MEDICARE PART A [address] [place] [address] [id number] Brook Lucas Self - patient is the insured 0 1 [facility] Medicare [address] [address] [place] [address] [phone] [id number] Brook Lucas Self - patient is the insured 2 2 [facility] [address] [address] [place] [address] [id number] Brook Lucas Self - patient is the insured 1 1 Medical (General) History Surgical History Surgery Date(Month/Year) Hospitalization History Reason Date(Month/Year) Recent Dx stage 1 breast cancer
--- OUTSIDE RECORDS SUMMARY | 2024-10-02 09:59 | XMS_ITS | Encounter Summary ---
Author Organization [facility] Address [address] [place] [address] Care Team Providers Care Veterinary Technician Name Role Phone Geraldo Coffey DO Primary Care Provider [phone] Anthony Castro MD Unavailable + [phone] Encounter Details Date Type Department Care Team (Late st Contact Info) Description 09/21/2024 Results Follow-Up [facility] [address] [place] [phone] Zonia Montana MD [address] [place] [id number] Social History Tobacco Use Types Packs/Day Years Used Date Smoking Tobacco: Never Smokeless Tobacco: Never Alcohol Use Standard Drinks/Week Comments Yes 0 [...] on file Legal 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 Informed that her blood work is overall stable including vit-d. Advised to continue the current medication and keep the follow-up appointment as planned. Sherry Mars RN 09/21/2024 1:44 PM * Zonia Montana MD - 09/21/2024 10:38 AM CDT Please inform patient blood work including vitamin-D level good range continue current medication and supplements no change. Keep follow-up as planned documented in this encounter Plan of Treatment Upcoming Encounters Date Type Department Care Team (Late st Contact Info) Description 03/30/2025 9:00 AM INTERNET MARKETING ANALYST Documentation [address] [phone] 03/30/2025 9:20 AM INTERNET MARKETING ANALYST Office Visit [address] [phone] Zonia Montana MD [address] [place] [phone] documented as of this encounter Visit Diagnoses Not on filedocumented in this encounter Care Teams Veterinary Technician Relationship Specialty Start Date End Date Geraldo Coffey DO PCP - General Internal Medicine 05/21/21 Anthony Castro MD [id number] [facility] [address] [address] Sales Lead Obstetrics and Gynecology 05/21/21 documented as of this encounter
--- OUTSIDE RECORDS SUMMARY | 2024-10-02 09:59 | XMS_ITS ---
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 Name Role Phone Justin Kasper Primary Care Provider Radha Ann Unavailable [phone] REASON FOR VISIT Psych F/U Social History Sex Assigned At : Social History Observation Description Sex Assigned At Female Encounters Encounter Location Date Provider Diagnosis [address] [place] [address] 04/18/2024 Radha Ann Plan Of Treatment No Information Progress Notes * Brook LUCASDOB:[birth year] (69 yo F)Acc No.[id number]:04/18/2024 UNLOCKED PROGRESS NOTE Patient: Brook PRIETO Provider: Ramesh Ann :1955 A ge:69 Y S ex:Female Date:04/18/2024 [id number] Pcp:Justin Kasper Subjective: * Chief Complaints: * 1 . Psych F/U. * Medical History: Objective: * Vitals: Assessment: Plan: * Treatment: * * Electronic signature of Radha Ann MD, [id number] on 10/02/2024 at 09:58 AM CDT Sign off status: Pending * Provider: A rif Habib Date: 0 04/18/2024 Generated for [place] camacho/Patricia/Alexandre on: 0 10/02/2024 09:58 AM CDT
[2024-10-02 17:34] LABS: Alanine Aminotransferase 24 U/L (6-35); Albumin Level 4.4 g/dL (3.5-5.1); Alkaline Phosphatase 47 U/L (38-126); Aspartate Amino Transferase 32 U/L (14-36); Bilirubin,Total 0.5 mg/dL (0.2-1.3); Total Protein 7.1 g/dL (6.3-8.2)
[2024-10-02 17:43] LABS: Iron 100 ug/dL (37-170)
[2024-10-02 18:02] LABS: Percent Iron Saturation 34 % (20-50)
[2024-10-02 19:03] LABS: HIV 1/2 Ab P24 Ag Result Negative (Negative)
[2024-10-02 20:27] LABS: Hepatitis B Surface Antigen Negative (Negative)
[2024-10-03 15:09] LABS: Deamidated Gliadin Abs, IgA 111 units (0-19); Deamidated Gliadin Abs, IgG 2 units (0-19); Immunoglobulin A, Qn 147 mg/dL (87-352)
== END 2024-10-02 09:53 | disposition home or self-care (01) ==
LOC: ANHGOSHLAB 09:53
PROVIDERS: PCP Nurse Practitioner; Visit Provider Nurse Practitioner
DX: R74.8 Abnormal levels of other serum enzymes (principal); Z11.4 Encounter for screening for human immunodeficiency virus [HIV]
CPT/HCPCS: 36415; 80076; 82784; 83540; 83550; 86231; 86258; 86703; 86803; 87340; G0432